=== PATIENT | male | born 1950 | race Caucasian/White ===

== ENCOUNTER 2020-11-03 22:02 | Emergency (ER) | payer OTHER ==
[2020-11-03 22:33] VITALS: BP 102/69; PULSE 107; TEMP 98.8; BMI 55.7
[2020-11-03] MEDS ORDERED: LIDOCAINE HCL 2% JELLY 10 ML CARTRIDGE ONE (23:10)
[2020-11-03] MEDS ORDERED: LIDOCAINE 2.5%/PRILOCAINE 2.5% (5 Gram/TUBE) TP ONE (23:10)
[2020-11-03 23:51] LABS: BASO % 0.6 % (0-2.0); EOS % 4.8 % (0-4.5); HEMOGLOBIN 8.2 GM/dL (11.7-16.9); LYMPH % 13.6 % (8-40); MCH 30.8 pg (25.7-33.7); MCHC 34.2 g/dl (32.0-35.9); MEAN PLT VOLUME 8.1 fl (7.5-11.1); MONO % 7.6 % (3.8-10.2); NEUT % 73.4 % (42.8-82.8); PLATELET COUNT 485 10^3/uL (134-434); RBC 2.67 M/mm3 (4.00-5.60); RDW 14.5 % (11.9-15.9); WHITE BLOOD COUNT 10.9 K/mm3 (4.0-10.0)
[2020-11-04 00:04] LABS: EPI CELLS 13 /uL (0-25.1); HYALINE CASTS 7 /uL (0-3.1); URINE APPEARANCE CLOUDY; URINE BACTERIA 33 /uL (0-1359); URINE BILIRUBIN NEGATIVE (NEGATIVE); URINE COLOR YELLOW; URINE GLUCOSE (UA) NEGATIVE (NEGATIVE); URINE KETONE NEGATIVE (NEGATIVE); URINE LEUK ESTERASE NEGATIVE (NEGATIVE); URINE NITRITE NEGATIVE (NEGATIVE); URINE PROTEIN TRACE (NEGATIVE); URINE WBC 18 /uL (0-25.8)
[2020-11-04 00:12] LABS: INR 1.07 (0.83-1.09); PROTHROMBIN TIME (PATIENT) 13.1 SEC (9.7-13.0)
[2020-11-04 00:15] LABS: ACTIVATED PTT 27.6 SECONDS (25.2-36.5)
[2020-11-04 00:23] LABS: CALCIUM 7.7 mg/dL (8.5-10.1)
[2020-11-04 00:24] LABS: ALBUMIN 2.2 g/dl (3.4-5.0); BLOOD UREA NITROGEN 54.1 mg/dL (7-18)
[2020-11-04 00:27] LABS: CREATININE 1.7 mg/dL (0.55-1.3)
[2020-11-04 00:28] LABS: BILIRUBIN,TOTAL 0.4 mg/dL (0.2-1)
[2020-11-04 00:29] LABS: TOT PROT 5.9 g/dl (6.4-8.2)
[2020-11-04] MEDS ORDERED: morphine CARPU-JECT 4 MG/1 ML DISP.SYRIN IVPUSH ONE (01:03)
[2020-11-04] MEDS ORDERED: morphine SULFATE 4 MG/ML VIAL ONE (01:33)
[2020-11-04 06:24] LABS: YEAST NONE SEEN (NEGATIVE)
== END 2020-11-04 07:24 | disposition short-term general hospital (02) ==
LOC: JER 22:02
PROC: 3E033GC Introduction of Other Therapeutic Substance into Peripheral Vein, Percutaneous Approach (ICD-10-PCS; principal; 2020-11-03)
DX: S72.402A Unspecified fracture of lower end of left femur, initial encounter for closed fracture (principal); E66.9 Obesity, unspecified; W19.XXXA Unspecified fall, initial encounter
CPT/HCPCS: 36415; 71045-TC-FY; 73590-TC-LT-FY; 80053; 81003; 82550; 83605; 85025; 85610; 85730; 86850; 86900; 86901; 87040; 87086; 93005; 93010; 99291